=== PATIENT | female | born 1985 | race Caucasian/White ===

== ENCOUNTER 2017-04-11 19:15 | Emergency (ER) | payer SELFPAY ==
[~2017-04-11] VITALS: Ht 165.1 cm; Wt 81.6 kg
--- NOTE | 2017-04-11 19:43 | PHYS DOC ---
Adult General Chief Complaint Chief Complaint: VAGINAL BLEEDING HPI HPI 31-year-old patient 0-3 with one ectopic and one prior miscarriage now reports some mild vaginal bleeding. Patient thinks she is in early and has not had any evaluation for this. She has no discharge, no pain and no fever and is otherwise asymptomatic Review of Systems Review of Systems Constitutional: Denies fever or chills [] Eyes: Denies change in visual acuity, redness, or eye pain [] HENT: Denies nasal congestion or sore throat [] Respiratory: Denies cough or shortness of breath [] Cardiovascular: No additional information not addressed in HPI [] GI: Denies abdominal pain, nausea, vomiting, bloody stools or diarrhea [] : Denies dysuria or hematuria [] Musculoskeletal: Denies back pain or joint pain [] Integument: Denies rash or skin lesions [] Neurologic: Denies headache, focal weakness or sensory changes [] Endocrine: Denies polyuria or polydipsia [] All other systems were reviewed and found to be within normal limits, except as documented in this note. Allergies Allergies Allergies Coded Allergies Type Severity Reaction Last Updated Verified No Known Drug Allergies 04/11/17 No Physical Exam Physical Exam Constitutional: Well developed, well nourished, no acute distress, non-toxic appearance. [] HENT: Normocephalic, atraumatic, bilateral external ears normal, oropharynx moist, no oral exudates, nose normal. [] Eyes: PERRLA, EOMI, conjunctiva normal, no discharge. [] Neck: Normal range of motion, no tenderness, supple, no stridor. [] Cardiovascular:Heart rate regular rhythm, no murmur [] Lungs & Thorax: Bilateral breath sounds clear to auscultation [] Abdomen: Bowel sounds normal, soft, no tenderness, no masses, no pulsatile masses. [] Skin: Warm, dry, no erythema, no rash. [] Back: No tenderness, no CVA tenderness. [] Extremities: No tenderness, no cyanosis, no clubbing, ROM intact, no edema. [] Neurologic: Alert and oriented X 3, normal motor function, normal sensory function, no focal deficits noted. [] Psychologic: Affect normal, judgement normal, mood normal. [] Current Patient Data Vital Signs Vital Signs Date Time Temp Pulse Resp B/P (MAP) Pulse Ox O2 Delivery O2 Flow Rate FiO2 04/11/17 20:37 63 18 100/55 (70) 100 Room Air 04/11/17 19:45 98.6 98.6 Lab Values Laboratory Tests Test 04/11/17 19:56 04/11/17 21:30 04/11/17 21:45 POC Urine HCG, Qualitative Hcg negative (Negative) Maternal Serum HCG Beta Subunit 7 mIU/mL (0-5) H POC Hemoglobin 11.6 g/dL (12-15) L POC Hematocrit 34 % (36-40) L POC Sodium 141 mmol/L (135-145) POC Potassium 4.0 mmol/L (3.5-5.0) POC Chloride 104 mmol/L (98-110) POC Total CO2 25 mmol/L (23-32) Anion Gap 17 mmol/L (6-14) H POC Blood Urea Nitrogen 11 mg/dL (8-26) POC Creatinine 0.8 mg/dL (0.5-1.4) Glucose Level 94 mg/dL (70-99) POC Ionized Calcium (Yang) 1.13 mmol/L (1.13-1.32) Laboratory Tests 04/11/17 21:45 EKG EKG [] Radiology/Procedures Radiology/Procedures [] Course & Med Decision Making Course & Med Decision Making Pertinent Labs and Imaging studies reviewed. (See chart for details) Well-appearing patient no acute distress benign exam. Patient thought she was in early with vaginal bleeding however she is not by her urine test and no further workup or treatment is indicated. Patient is experiencing menses and she'll follow-up with her primary care doctor and her gonococcal just. [] Dragon Disclaimer Dragon Disclaimer This electronic medical record was generated, in whole or in part, using a voice recognition dictation system. Departure Departure Impression: Primary Impression: Menses, irregular Disposition: 01 HOME, SELF-CARE Condition: GOOD Referrals: NO PCP (PCP) Additional Instructions: Your test was negative today. Therefore it appears that your vaginal bleeding is a result of irregular menstrual bleeding. Rest and drink plenty of fluids. Follow-up with your [employer] doctor in 1-2 days and return immediately for new severe or worsening symptoms. TORI PEARL MD Apr 11, 2017 19:43
[2017-04-11 20:37] VITALS: BP 100/55
== END 2017-04-11 22:40 | disposition home or self-care (01) ==
LOC: ER 19:15
DX: N92.6 Irregular menstruation, unspecified (principal)
CPT/HCPCS: 36415; 80047; 81025; 84702; 99283

== ENCOUNTER 2017-09-19 12:38 | Emergency (ER) | payer OTHER ==
[2017-09-19 13:05] LABS: BILIRUBIN,URINE NEGATIVE (NEG); CLARITY,URINE CLEAR; COLOR,URINE YELLOW; GLUCOSE,URINE NEGATIVE (NEG); NITRITE,URINE NEGATIVE (NEG); PROTEIN,URINE NEGATIVE (NEG-TRACE)
[2017-09-19 13:19] LABS: BACTERIA,URINE FEW /HPF (0-FEW); SQUAMOUS EPITHELIAL CELL,UR MOD /LPF
== END 2017-09-19 14:12 | disposition home or self-care (01) ==
LOC: ER 12:38
DX: O26.892 Other specified pregnancy related conditions, second trimester (principal); M79.662 Pain in left lower leg; F17.210 Nicotine dependence, cigarettes, uncomplicated; Z3A.19 19 weeks gestation of pregnancy
CPT/HCPCS: 81001; 93971; 99285-25